=== PATIENT | female | born 1970 | race Caucasian/White ===

== ENCOUNTER 2021-05-19 14:13 | Inpatient (IN) | payer MEDICARE, OTHER ==
[~2021-05-19] VITALS: Ht 160 cm; Wt 75.0 kg
[~2021-05-19 14:13] MED LIST: AMOCLA875 PO; AMOX875 PO; AMPDEX15CR PO; ATOR20 PO; GUAI600ER PO; HYDCHL25 PO; K-Dur20 MEQ PO; LISI5 PO; Lisinopril2.5 MG PO; METF500 PO; NAPR500 PO; Norco 5-325 Ta1 EACH PO; OXYACE5T PO; POTCHL20ER PO; SERT100 PO; SERT50 PO; TAMS.4ER PO
[2021-05-19 15:11] LABS: BASOPHILS ABSOLUTE AUTO 0.04 K/mm3 (0.00-0.23); BASOPHILS PERCENT AUTO 0 % (0-2); EOSINOPHILS ABSOLUTE AUTO 0.02 K/mm3 (0.00-0.68); EOSINOPHILS PERCENT AUTO 0 % (0-6); Hematocrit 40.1 % (33.0-51.0); Hemoglobin 12.4 g/dL (11.5-16.0); IMMATURE GRAN ABSOLUTE AUTO 0.08 K/mm3 (0.00-0.10); IMMATURE GRAN PERCENT AUTO 1 % (0-1); LYMPHOCYTES ABSOLUTE AUTO 0.93 K/mm3 (0.84-5.20); LYMPHOCYTES PERCENT AUTO 9 % (21-46); MONOCYTES ABSOLUTE AUTO 0.65 K/mm3 (0.16-1.47); MONOCYTES PERCENT AUTO 6 % (4-13); Mean Corpuscular HGB 23.6 pg (26.0-34.0); Mean Corpuscular HGB Conc 30.9 g/dL (31.5-36.5); Mean Corpuscular Volume 76 fL (80-100); Mean Platelet Volume 10.1 fL (9.1-12.4); NEUTROPHILS ABSOLUTE AUTO 8.87 K/mm3 (1.96-9.15); NEUTROPHILS PERCENT AUTO 84 % (41-73); Platelet Count 342 K/mm3 (150-400); RDW Coefficient Variation 16.3 % (11.7-14.2); RDW Standard Deviation 44.9 fL (35.1-46.3); Red Blood Cell Count 5.25 M/mm3 (3.80-5.20); White Blood Cell Count 10.59 K/mm3 (4.00-11.30)
[2021-05-19 15:39] LABS: Alanine Aminotransfer (ALT/SGP 11 U/L (12-78); Albumin, Blood 2.6 g/dL (3.4-5.0); Albumin/Globulin Ratio 0.5 (0.8-1.8); Alk Phos 98 U/L (50-136); Anion Gap 7 mmol/L (6-16); Aspartate Aminotrans (AST/SGOT 9 U/L (12-37); Bilirubin, Total 0.5 mg/dL (0.1-1.0); Blood Urea Nitrogen 23 mg/dL (8-24); Bun/Creatinine Ratio 24.2 (12.0-20.0); CO2, Blood 26 mmol/L (21-32); Calcium, Blood 11.5 mg/dL (8.5-10.1); Chloride, Blood 92 mmol/L (98-108); Creatinine, Blood 0.95 mg/dL (0.40-1.00); Globulin, Blood 4.9 g/dL (2.2-4.0); Glomerular Filtration Rate >60 (60-); Glucose, Blood 578 mg/dL (70-99); Potassium, Blood 5.7 mmol/L (3.5-5.5); Sodium, Blood 125 mmol/L (136-145); Total Protein, Blood 7.5 g/dL (6.4-8.2)
[2021-05-19 16:37] LABS: Source, Urine Clean Catch
[2021-05-19 16:44] LABS: Appearance, Urine Hazy (Clear); Bilirubin, Urine Neg (Neg); Blood, Urine 2+ (Neg); Color, Urine Yellow (P-Yellow); Glucose Qualitative, Urine 4+ (Neg); Ketones, Urine Neg (Neg); Leukocyte Esterase, Urine 1+ (Neg); Nitrite, Urine Neg (Neg); Protein, Urine 4+ (Neg); Specific Gravity, Urine 1.015 (1.003-1.022); Urobilinogen, Urine NORM (Normal)
[2021-05-19 16:53] LABS: Bacteria Many /hpf; Squamous Epithelial Cells Mod /hpf (Few)
[2021-05-19 22:00] LABS: Source, Urine Catheter
[2021-05-19 22:03] LABS: Appearance, Urine Clear (Clear); Bilirubin, Urine Neg (Neg); Blood, Urine 2+ (Neg); Color, Urine Yellow (P-Yellow); Glucose Qualitative, Urine 4+ (Neg); Ketones, Urine Neg (Neg); Leukocyte Esterase, Urine 1+ (Neg); Nitrite, Urine Neg (Neg); Protein, Urine 3+ (Neg); Specific Gravity, Urine 1.015 (1.003-1.022); Urobilinogen, Urine NORM (Normal)
[2021-05-19 22:09] LABS: Amorphous Light (0-Heavy); Bacteria Many /hpf; Red Blood Cells, Urine 0-2 /hpf (0-2); Squamous Epithelial Cells Few /hpf (Few)
[2021-05-19 23:34] LABS: International Normalized Ratio 1.01; Prothrombin Time Results 10.9 Sec (9.7-11.5)
--- NOTE | 2021-05-20 00:50 | NUR ---
RECEIVED REPORT FROM LORENA JAMES RN. PT ARRIVED TO 303 VIA GURNEY. TRANSFERRED PT TO BED VIA SLIDER SHEET. ALERT. SLOW TO RESPOND TO QUESTIONS. ON 2.5L VIA NC. HEPARIN GTT INFUSING AT 18.3, 15 UNITS/KG/HR. WILL CONTINUE TO PROVIDE CARE T/O SHIFT. CALL LT IN REACH.
--- NOTE | 2021-05-20 01:57 | NUR ---
NOTIFIED HOSPITALIST OF CBG 378 AND THAT 5 UNITS OF REGULAR INSULIN WAS GIVEN AND THAT THE PT IS ON Q4 CBG CHECKS. NO NEW ORDERS GIVEN.
--- NOTE | 2021-05-20 02:11 | NUR ---
PT RESTING QUIETLY. CALL LT IN REACH. BED ALARM ON.
--- NOTE | 2021-05-20 04:54 | NUR ---
NOTIFIED HOSPITALIST OF CBG 377, 5 UNITS REG INSULIN GIVEN PER MEDIUM CORRECTION SCALE. NO NEW ORDERS RECEIVED.
--- NOTE | 2021-05-20 05:31 | NUR ---
SHIFT SUMMARY: ER ADMIT AT 0050. MOSTLY ALERT AND ORIENTED. SLOW TO RESPOND TO QUESTIONS. ON 2.5L VIA NC, DYSPNEA WITH EXERTION. USING BSC WITH SBA. IV'S X 2. ON HEPARIN GTT, SEE EMAR. Q4 CBG, ON MEDIUM CORRECTION SCALE. COVERED PT X 2 WITH 5 UNITS OF REG INSULIN FOR CBG'S OF [address] OF CBG RESULTS. NO ACUTE CHANGES. WILL CONTINUE TO PROVIDE CARE UNTIL SHIFT REPORT.
[2021-05-20 05:33] LABS: Bun/Creatinine Ratio 23.6 (12.0-20.0); Calcium, Blood 10.7 mg/dL (8.5-10.1); Creatinine, Blood 1.06 mg/dL (0.40-1.00); Potassium, Blood 5.1 mmol/L (3.5-5.5)
[2021-05-20 10:35] LABS: Cancer Antigen 125 262.9 U/mL (1.5-35.0); Carcinoembryonic Antigen 0.8 ng/mL (0.0-3.0)
--- NOTE | 2021-05-20 18:30 | NUR ---
SHIFT SUMMARY FREQUENTLY TEARFUL REGARDING CANCER DX. COMPLAINS OF FEELING COLD AT THIS TIME. TEMPERATURE WNL. SKIN WARM, DIAPHORETIC. PAIN/NAUSEA CONTROLLED WITH PRN'S. LUNG BX COMPLETE. HEAD CT IN AM, DUE TO CONTRAST ADMINISTRATION AT 2200, 05/19/2021.
--- NOTE | 2021-05-21 13:02 | NUR ---
Spiritual care visit conducted. Patient is lying in bed and resting. Patient is very tearful as she explains about her recent diagnosis, her family unit complications and the many struggles in life that she has endured. She also shares about her Holiness ashley and its importance in challenging times. I listen empathically, normalize her fears and concerns, reinforce helpful attitudes and practices and provide pastoral general counsel and prayer. Patient responds well and shows signs of an increase in peace and hope. I will continue to remain available to patient and family.
--- NOTE | 2021-05-21 13:28 | NUR ---
Met with pt today; she was lying in bed when I arrived. She welcomed the visit, but quickly after I sat down she began to cry, stating her stomach hurts "a lot". The nurse brought pain medication and assisted pt up to the chair for lunch. She was resistive at first, but then agreed to get up to the chair. She requires standby assist due to bilateral LE weakness. She tells me she hasn't been feeling well for about a month, and she thought it was kidney stones until she received the cancer diagnosis. So far, no middle or intermediate school principal decisions have been made. Pt tells me she lives in a small apartment, too small for either of her adult children to come to stay with her, and her daughter is getting ought of senior living soon. Pt does not bring up her diagnosis, and when I do, she changes the subject quickly. Her nurse states she was very open last evening, and that she did ask questions regarding the cancer. She is agreeable to me returning later today.
--- NOTE | 2021-05-21 17:50 | NUR ---
SHIFT SUMMARY UP TO CHAIR FOR ALL MEALS. FREQUENTLY TEARFUL/ANXIOUS. PAIN AND ANXIETY PRN'S GIVEN WITH REDUCTION OF SYMPTOMS. PALLIATIVE AND SPIRITUAL CARE CALLED BY THIS RN FOR ADDITIONAL SUPPORT. REFUSED TO AMBULATE IN HALLWAY. SON, DEEPIKA, VISITED THIS EVENING AND WAS UPDATED BY THIS RN.
[2021-05-22 05:07] LABS: Hematocrit 38.8 % (33.0-51.0); Mean Corpuscular HGB 23.8 pg (26.0-34.0); Mean Corpuscular HGB Conc 30.9 g/dL (31.5-36.5); Mean Corpuscular Volume 77 fL (80-100); Mean Platelet Volume 10.7 fL (9.1-12.4); Platelet Count 403 K/mm3 (150-400); RDW Standard Deviation 46.9 fL (35.1-46.3); Red Blood Cell Count 5.04 M/mm3 (3.80-5.20); White Blood Cell Count 12.07 K/mm3 (4.00-11.30)
--- NOTE | 2021-05-22 05:39 | NUR ---
SUMMARY PT C/O CONSTIPATION T/O SHIFT. PT HAD NOTED LOOSE BROWN STOOL DURING SHIFT. PT ALSO C/O ABD PAIN W/ NAUSEA. PT TX PER EMAR W/ RELIEF. PT CURRENTLY AWAKE IN NO DISTRESS. CALL LIGHT IN REACH.
[2021-05-22 05:59] LABS: Calcium, Blood 11.3 mg/dL (8.5-10.1); Creatinine, Blood 2.41 mg/dL (0.40-1.00); Potassium, Blood 5.4 mmol/L (3.5-5.5); Thyroid Stimulating Hormone 5.26 uIU/mL (0.360-4.800)
--- NOTE | 2021-05-22 12:10 | NUR ---
Met with pt this am, she is tearful and tells me that her roommate has . She states her son went to the apartment and found him there, and called 911. After today's assessment, it appears pt has low level of insight and poor understanding of disease process. During this assessment, I learned that pt has a payee ([employer]) to pay her bills, and she is on disability. Her son is able to tell me it's for "her emotional stuff" but unable to clarify beyond that. I relayed these concerns to Manager Of Warehouse, and placed call to "[employer]" with pt's permission to speak to them regarding her situation. Spoke to Cristy who explained that pt is not only unable to make financial decisions or pay bills, but that her roommate was also the one who held the apartment lease, likely making pt homeless. Pt states she has a brother Ramesh, and she gave me permission to call him. I have left a message for him at [phone]. At this point, pt may benefit from assistance with decision making, as well as assistance with placement.
--- NOTE | 2021-05-22 16:55 | NUR ---
SHIFT SUMMARY PT IS AO TO SELF AND FAMILY WITH FLAT AFFECT. PT DENIES N/V, SOB. PT TITRATED TO 1 L O2 THIS SHIFT. PT MEDICATED FOR PAIN X1 PER EMAR. PT IS ONE ASSIST TO BCC AND REFUSES PT/OT. PT APPETITE IS POOR. NO PROCEDURES DONE THIS SHIFT. PT MAY BE AWAITING PLACEMENT DUE TO ROOMATE PASSING AWAY THIS AM, LEAVING PT ESSENTIALLY HOMELESS. PT'S SON IN TO VISIT T/O SHIFT. PT HAD MULTIPLE BM'S THIS SHIFT. PT IS IN BED, CALL LIGHT IN REACH, BED IN LOW POSITION.
--- NOTE | 2021-05-23 06:17 | NUR ---
SHIFT SUMMARY PT IS A 50 Y/O FEMALE, ADMITTED FOR PE. SHE IS A&O X 3, CHILDLIKE DEMEANOR, 1PA TO THE BATHROOM. PT WAS MEDICATED FOR NAUSEA AND EMESIS WITH PRN ZOFRAN. NO C/O PAIN OR SOB. PT IS SATTING > 90% ON RA. VITAL SIGNS STABLE. NO ACUTE CHANGES IN PT CONDITION NOTED DURING THE NIGHT. WILL CONTINUE TO MONITOR AND TREAT PER EMAR UNTIL HAND OFF TO DAY SHIFT RN.
--- NOTE | 2021-05-23 18:46 | NUR ---
SHIFT SUMMARY PT IS AOX2-3 AND SLOW TO RESPOND. PT MEDICATED FOR PAIN AND HEARTBURN X1 THIS SHIFT PER EMAR. PT DENIES N/V, SOB. PT IS ONE ASSIST TO BCC. PT APPETITE IS MODERATE. PT COGNITIVE STATUS EVALUATED BY ST THIS SHIFT. PT'S SON IN TO VISIT TODAY. PLAN IS FOR PLACEMENT DUE TO SOCIAL ISSUES. PT IS IN BED, CALL LIGHT IN REACH, LOW POSITION.
--- NOTE | 2021-05-23 19:20 | NUR ---
met with pt and her son. pt unable to track conversation and very distraught. pt son states he will be ok for suppport. pt brother come to hospital they were not going to let him in asked that he come in may be potential deicion maker. pt brother marcelino and left. will update care managers on tuesday and oncology pt will need place to live and need to see what oncology plan is pt kps ascore is 40%. pt risk of failure to thrive and readmission. may be best cared for in [facility] facility.
--- NOTE | 2021-05-24 06:29 | NUR ---
SHIFT SUMMARY PT IS A 50 Y/O FEMALE, ADMITTED FOR PE. SHE IS A&O X 2-3, CHILDLIKE MENTALITY, [facility] [facility] NO C/O ACUTE PAIN, NAUSEA OR SOB. PT SLEPT WELL THROUGH THE NIGHT. VITAL SIGNS STABLE. NO ACUTE CHANGES IN PT CONDITION NOTED DURING THE NIGHT. WILL CONTINUE TO MONITOR AND TREAT PER EMAR UNTIL HAND OFF TO DAY SHIFT RN.
[2021-05-24 08:05] LABS: Hematocrit 35.2 % (33.0-51.0)
[2021-05-24 08:43] LABS: Calcium, Blood 10.7 mg/dL (8.5-10.1); Creatinine, Blood 4.5 mg/dL (0.40-1.00); Potassium, Blood 6.3 mmol/L (3.5-5.5)
[2021-05-24 13:01] LABS: International Normalized Ratio 1.11; Prothrombin Time Results 11.9 Sec (9.7-11.5)
--- NOTE | 2021-05-24 13:10 | NUR ---
RECEIVED CRITICAL LAB OF POTASSIUM; CALLED DR BROCK AND RECEIVED AN ORDER TO CALL DR HAYES INSTEAD; SUSI CANSECO WILL CALL DR HAYES FOR THIS RESULT
--- NOTE | 2021-05-24 19:23 | NUR ---
SHIFT SUMMARY PT IS AOX3 WITH FORGETFULNESS. PT DENIES PAIN, N/V, SOB. PT IS ONE ASSIST TO BCC WITH INCREASING WEAKNESS. PT IS ON TELE RUNNING SINUS TACH BBB @ 110. PT PLACED ON 2 L 02 THIS TELMA FOR SATS 86-88%. PT K+ REMAINS CH THIS SHIFT @ 6.4, INTERVENTIONS PER EMAR AND RECHECK DUE TONIGHT. APPETITE IS POOR AND PT IS NOW REQUIRING MEAL ASSISTANCE FOR POOR MOTOR SKILLS. PT HAD RENAL US THIS SHIFT. PT'S ON IN TO VISIT. PT PLACED ON HEPARIN DRIP TO REPLACE XARELTO FOR ANTICOAGULATION DUE TO RENAL FAILURE. PT IS IN BED, CALL LIGHT IN REACH, BED IN LOW POSITION.
[2021-05-25 04:38] LABS: Hematocrit 32.6 % (33.0-51.0); Hemoglobin 10.2 g/dL (11.5-16.0)
[2021-05-25 05:07] LABS: Alanine Aminotransfer (ALT/SGP 8 U/L (12-78); Albumin, Blood 1.7 g/dL (3.4-5.0); Albumin/Globulin Ratio 0.4 (0.8-1.8); Alk Phos 91 U/L (50-136); Anion Gap 9 mmol/L (6-16); Aspartate Aminotrans (AST/SGOT 9 U/L (12-37); Bilirubin, Direct <0.1 mg/dL (0.0-0.3); Bilirubin, Indirect Unable to Calculate mg/dL (0.1-0.7); Bilirubin, Total 0.2 mg/dL (0.1-1.0); Blood Urea Nitrogen 65 mg/dL (8-24); Bun/Creatinine Ratio 14.9 (12.0-20.0); CO2, Blood 24 mmol/L (21-32); CPK Creatine Kinase 18 U/L (26-193); Calcium, Blood 9.7 mg/dL (8.5-10.1); Chloride, Blood 94 mmol/L (98-108); Creatinine, Blood 4.37 mg/dL (0.40-1.00); Globulin, Blood 4.1 g/dL (2.2-4.0); Glomerular Filtration Rate 11 (60-); Glucose, Blood 131 mg/dL (70-99); Magnesium, Blood 2.3 mg/dL (1.6-2.4); Phosphorus, Blood 7.6 mg/dL (2.5-4.9); Potassium, Blood 5.6 mmol/L (3.5-5.5); Sodium, Blood 127 mmol/L (136-145); Total Protein, Blood 5.8 g/dL (6.4-8.2); Uric Acid, Blood 10.1 mg/dL (2.6-6.0)
--- NOTE | 2021-05-25 06:15 | NUR ---
SHIFT SUMMARY PT IS A 50 Y/O FEMALE, ADMITTED FOR PE AND RECENT ACUTE KIDNEY FAILURE WITH REENT DX OF KIDNEY CA. SHE IS A&O X 3, WITH A CHILDLIKE MENTATION. 1PA TO THE BSC. PT HAD MINIMAL URINE OUTPUT DURING THE NIGHT, RECEIVING NS @ 150 ML/HR. RECEIVING HEPARIN CURRENTLY @ 19 U/KG/HR. BP THIS AM WAS LOW AT 96/59, HR TACHY IN THE 100-110S. PT WAS PLACE ON 2L OF O2 VIA NC FOR SATS OF 88-89% ON RA, CURRENTLY SATTING > 90%. VITAL SIGNS OTHERWISE STABLE. K+ LAST NIGHT WAS 5.9. DR HAYES NOTIFIED, AND A OT DOSE OF LOKELMA GIVEN. NO OTHER ACUTE CHANGES IN PT CONDITION NOTED DURING THE NIGHT. WILL CONTINUE TO MONITOR AND TREAT PER EMAR UNTIL HAND OFF TO DAY SHIFT RN.
[2021-05-25 12:01] LABS: Mean Platelet Volume 9.8 fL (9.1-12.4); Platelet Count 477 K/mm3 (150-400)
[2021-05-25 16:03] LABS: Thyroid Stimulating Hormone 4.44 uIU/mL (0.360-4.800); Uric Acid, Blood 9.9 mg/dL (2.6-6.0)
[2021-05-25 16:06] LABS: Cortisol, AM 23.8 ug/dL (6.7-22.6)
--- NOTE | 2021-05-25 18:38 | NUR ---
PATIENT IS ALERT AND ORIENTED. SHE IS CHILDLIKE. ON 2L O2 VIA NC.VOIDED ONCE THIS SHIFT. A 24 HR URINE WAS STARTED AT 1000. HER SON VISITED TODAY. PLAN TO [facility] TRANSFER FOR UROLOGY. PARTICIPATED WITH PT TODAY. 1PA WITH FWW AND GAITBELT. WILL CONTINUE TO MONITOR
[2021-05-26 04:22] LABS: Hematocrit 30.6 % (33.0-51.0); Hemoglobin 9.7 g/dL (11.5-16.0)
[2021-05-26 04:40] LABS: Albumin, Blood 1.6 g/dL (3.4-5.0); Anion Gap 9 mmol/L (6-16); Blood Urea Nitrogen 67 mg/dL (8-24); Bun/Creatinine Ratio 16.6 (12.0-20.0); CO2, Blood 21 mmol/L (21-32); Calcium, Blood 8.8 mg/dL (8.5-10.1); Chloride, Blood 96 mmol/L (98-108); Creatinine, Blood 4.03 mg/dL (0.40-1.00); Glomerular Filtration Rate 12 (60-); Glucose, Blood 145 mg/dL (70-99); Magnesium, Blood 2.3 mg/dL (1.6-2.4); Phosphorus, Blood 7.2 mg/dL (2.5-4.9); Potassium, Blood 5.1 mmol/L (3.5-5.5); Sodium, Blood 126 mmol/L (136-145)
--- NOTE | 2021-05-26 05:05 | NUR ---
50 year old Female with dx of PE continues on heparin GTT managed by pharmacy. No bolus doses given but titrated infusion up twice. PT on oxygen 2 l with sats over 90%. PT has developmental delay but able to communicate. On 24 hour urine collection with IV fluids running at 150 ml hr PT has dark luz urine. PT on abx for uti. Son calls & asks to be notified when PT cobra transferred to care of urology. DC planning to [facility] or [facility] pending acceptance of PT with new DX of lt lt renal cancer.
--- NOTE | 2021-05-26 10:58 | NUR ---
Met with pt this morning, she was tearful and states she is feeling "so lonely". The BACK WEDGER said pt wanted to take a shower but felt too weak, so I offered pt a bed bath along with our visit. She agreed to it. During the bath, she talked a lot about her mother. She began to cry when she stated her mom had unexpectedly. She also tells me her stepdad was not a nice person, and he sold her mothers home right away after her mom passed, and that she has been "mostly alone" since that time. She has mentioned having brothers in the past, and I have spoken to one brother on he phone. Her mood brightened considerably with the visit, and afterward, she was agreeable to get up into the chair to color pictures. Plan to stop in again this afternoon.
[2021-05-26 11:17] LABS: Protein, Urine Quantitative 213.7 mg/dL (0.0-11.9)
--- NOTE | 2021-05-26 13:25 | NUR ---
Spiritual care visit conducted. Patient is very talkative today and shares about her ashley and her family and we explore areas of her spiritual distress. Patient enjoys reminiscing about the good parts of her childhood. Patient has very clear and energetic moments and then times that she is slow and her speech is a little slurred. She also had a couple of very emotional times during our visit when talking about past mistakes, when talking about the seriousness of her diagnosis and when becoming overwhelmed by all the medical terms and treatments. I reinforce helpful attitudes and practices, hear confession and provide therapeutic listening, pastoral pediatric genetic counselor and prayer. Patient responds well and shows signs of catharsis and increased peace. I will continue to remain available to patient and family.
--- NOTE | 2021-05-26 15:07 | NUR ---
REPORT GIVEN TO RM 0 NURSE, DMITRIY GOLDMAN AT [facility] IN [place].
[2021-05-27 16:11] LABS: A/G RATIO 0.7 (0.7-1.7); ALPHA-1-GLOBULIN 0.6 g/dL (0.0-0.4); ALPHA-2-GLOBULIN 1.3 g/dL (0.4-1.0); BETA GLOBULIN 0.8 g/dL (0.7-1.3); GAMMA GLOBULIN 0.7 g/dL (0.4-1.8); GLOBULIN, TOTAL 3.3 g/dL (2.2-3.9); IMMUNOGLOBULIN A, QN, SERUM 224 mg/dL (87-352); IMMUNOGLOBULIN G, QN, SERUM 608 mg/dL (586-1602); IMMUNOGLOBULIN M, QN, SERUM 80 mg/dL (26-217); M-SPIKE Not Observed g/dL (Not Observed); PROTEIN, TOTAL, SERUM 5.3 g/dL (6.0-8.5)
[2021-05-28 09:11] LABS: ANTIGLOMERULAR BM AB 3 units (0-20)
[2021-05-28 15:11] LABS: ANA DIRECT Negative (Negative); ANTIMYELOPEROXIDASE (MPO) ABS <9.0 U/mL (0.0-9.0); ANTIPROTEINASE 3 (PR-3) ABS <3.5 U/mL (0.0-3.5); ATYPICAL PANCA <1:20 titer (Neg:<1:20); CYTOPLASMIC (C-ANCA) <1:20 titer (Neg:<1:20); PERINUCLEAR (P-ANCA) <1:20 titer (Neg:<1:20)
--- NOTE | 2021-05-28 16:46 | NUR ---
Placed call to Tawnya Cortes and spoke to SUSI Lacey regarding this pt. She reports pt had a R ureter stent placed, and is returning to [facility] today, Room 309. The nurse Deepthi reports: Pt is alert but confused easily. The patient has been reporting hallucinations of people in her room throughout her hospital stay there. Deepthi also reports the patient is unable to understand the use of call light or other basic tasks. She is currently a 1 person walker assist whose pain is currently well controlled. Report passed on to Abhisehk.
[2021-05-29 13:08] LABS: M-SPIKE, % Not Observed % (Not Observed); PROTEIN,TOTAL,URINE 125.8 mg/dL (Not Estab.)
== END 2021-05-26 16:19 | disposition short-term general hospital (02) | DRG 180 ==
LOC: ER 14:13 → MEDS 23:28
PROVIDERS: Internal Medicine; Internal Medicine Hematology & Oncology; Internal Medicine Nephrology; Physician Assistant; ADMIT Internal Medicine
PROC: 0BBN3ZX Excision of Right Pleura, Percutaneous Approach, Diagnostic (ICD-10-PCS; principal; 2021-05-20)
DX: C78.00 Secondary malignant neoplasm of unspecified lung (principal); I26.99 Other pulmonary embolism without acute cor pulmonale; C64.1 Malignant neoplasm of right kidney, except renal pelvis; C78.6 Secondary malignant neoplasm of retroperitoneum and peritoneum; R18.0 Malignant ascites; N17.9 Acute kidney failure, unspecified; E87.1 Hypo-osmolality and hyponatremia; N13.6 Pyonephrosis; K64.4 Residual hemorrhoidal skin tags; E11.65 Type 2 diabetes mellitus with hyperglycemia; E87.5 Hyperkalemia; G47.00 Insomnia, unspecified; E86.9 Volume depletion, unspecified; E11.22 Type 2 diabetes mellitus with diabetic chronic kidney disease; E83.39 Other disorders of phosphorus metabolism; E83.52 Hypercalcemia; D63.0 Anemia in neoplastic disease; E88.09 Other disorders of plasma-protein metabolism, not elsewhere classified; N18.9 Chronic kidney disease, unspecified; F41.9 Anxiety disorder, unspecified; I12.9 Hypertensive chronic kidney disease with stage 1 through stage 4 chronic kidney disease, or unspecified chronic kidney disease; K59.00 Constipation, unspecified; K64.8 Other hemorrhoids; Z87.442 Personal history of urinary calculi; Z90.711 Acquired absence of uterus with remaining cervical stump; Z87.891 Personal history of nicotine dependence; Z79.899 Other long term (current) drug therapy; Z79.84 Long term (current) use of oral hypoglycemic drugs
CPT/HCPCS: 32408; 36415; 70470; 71260; 74150; 74176; 76770; 77012; 80048; 80053; 80069; 81001; 81050; 82248; 82378; 82533; 82550; 82784; 82947; 83036; 83516; 83520; 83690; 83735; 83930; 83970; 84100; 84132; 84156; 84165; 84166; 84436; 84443; 84550; 85014; 85018; 85025; 85027; 85049; 85610; 85730; 86038; 86256; 86304; 86334; 86335; 87086; 88305; 88341; 88342; 93306; 93970; 96125-GN; 96361; 96374; 96375; 97110; 97116; 97162; 97530; 99285-25; A9270; J0610; J0696; J1644; J1815; J2270; J2405; J7030; Q9967

== ENCOUNTER 2021-05-28 13:52 | Inpatient (IN) | payer MEDICARE, OTHER ==
[~2021-05-28] VITALS: Ht 160 cm; Wt 91.3 kg
--- NOTE | 2021-05-28 18:43 | NUR ---
SUMMARY PT ARRIVED FROM [facility], PT DIRECT ADMIT, DR MAE NOTIFIED UPON PT'S ARRIVAL, PT ABLE TO STAND AND TRANSFER SELF FROM THE GURNEY TO THE BED, THEN PT ABLE TO AMBULATE WITH THE WALKER TO THE BEDSIDE COMMODE, PT HAS A [address] TO THE L AC, PT DENIES ANY PAIN, ABLE TO VOID PINK TINGED URINE WITH SMALL CLOTS, WILL CONTINUE TO MONITOR
[2021-05-28 19:34] LABS: International Normalized Ratio 1.09; Prothrombin Time Results 11.7 Sec (9.7-11.5)
--- NOTE | 2021-05-28 22:58 | NUR ---
IV HEPARIN DRIP INITIATED - SEE MAR FOR DOSAGE/PHARM NOTES. ASSISTED TO BEDSIDE COMMODE A FEW TIMES. PT SHOWS DIFFICULTY WITH MOVEMENT - SEVER ASCITES. CONTINUES TO HAVE PINK TINGED URINE. CALL LIGHT IN REACH.
[2021-05-28 23:54] LABS: Albumin, Blood 1.6 g/dL (3.4-5.0); Anion Gap 14 mmol/L (6-16); Blood Urea Nitrogen 76 mg/dL (8-24); Bun/Creatinine Ratio 21.1 (12.0-20.0); CO2, Blood 18 mmol/L (21-32); Calcium, Blood 8.4 mg/dL (8.5-10.1); Chloride, Blood 95 mmol/L (98-108); Creatinine, Blood 3.61 mg/dL (0.40-1.00); Glomerular Filtration Rate 13 (60-); Glucose, Blood 148 mg/dL (70-99); Magnesium, Blood 2.1 mg/dL (1.6-2.4); Phosphorus, Blood 7.9 mg/dL (2.5-4.9); Potassium, Blood 5.3 mmol/L (3.5-5.5); Sodium, Blood 127 mmol/L (136-145)
--- NOTE | 2021-05-29 01:24 | NUR ---
ORDERS FOR BLADDER SCAN TO CALL MD IF OVER 200 CC. BLADDER SCANNED, 178 RESULT. IV BUMEX GIVEN. IV HEPARIN DRIP CONTINUES. CALL LIGHT IN REACH
[2021-05-29 05:10] LABS: Hematocrit 29.8 % (33.0-51.0); Hemoglobin 9.3 g/dL (11.5-16.0); Mean Corpuscular HGB 23.5 pg (26.0-34.0); Mean Corpuscular HGB Conc 31.2 g/dL (31.5-36.5); Mean Corpuscular Volume 75 fL (80-100); Mean Platelet Volume 8.9 fL (9.1-12.4); Platelet Count 466 K/mm3 (150-400); RDW Standard Deviation 47.3 fL (35.1-46.3); Red Blood Cell Count 3.95 M/mm3 (3.80-5.20); White Blood Cell Count 10.57 K/mm3 (4.00-11.30)
--- NOTE | 2021-05-29 05:29 | NUR ---
EXECUTIVE TEAM LEADER SUMMARY AWKAE AT INTERVALS, HEPARIN DRIP CONTINUES. BLADDER SCANNED, NOT MUCH IN BLADDER. HAS BEEN ASSISTED TO BEDSIDE COMMODE A FEW TIMES. RESTING QUIETLY WITH CALL LIGHT IN REACH
[2021-05-29 05:32] LABS: Albumin, Blood 1.6 g/dL (3.4-5.0); Anion Gap 11 mmol/L (6-16); Blood Urea Nitrogen 75 mg/dL (8-24); Bun/Creatinine Ratio 21.2 (12.0-20.0); CO2, Blood 18 mmol/L (21-32); Calcium, Blood 8.3 mg/dL (8.5-10.1); Chloride, Blood 96 mmol/L (98-108); Creatinine, Blood 3.53 mg/dL (0.40-1.00); Glomerular Filtration Rate 14 (60-); Glucose, Blood 133 mg/dL (70-99); Magnesium, Blood 2.2 mg/dL (1.6-2.4); Phosphorus, Blood 7.6 mg/dL (2.5-4.9); Potassium, Blood 5.2 mmol/L (3.5-5.5); Sodium, Blood 125 mmol/L (136-145)
--- NOTE | 2021-05-29 17:09 | NUR ---
SUMMARY PT SITTING UP IN BED VISITING WITH HER SON, PT HAS BEEN PLEASANT AND COOPERATIVE WITH CARE T/O THE DAY, FORGETFUL AT TIMES AND DOES NOT CONSISTENTLY USE THE CALL LIGHT, BED ALARM ON FOR SAFETY, PT MED PER EMAR FOR PAIN, PT UP WITH MIN ASSIST, VSS, WILL CONT TO MONITOR
--- NOTE | 2021-05-30 07:05 | NUR ---
Pt is calm a&ox3 resonds slow verbally oob to bedside comode co ascities discomfort and difficultly breathing with postional changes. had one espisode of nightmares afraid and easily redirectable sat at bedside. hob elevated and call light within reach currently on bedside comode with co constipation
[2021-05-30 08:16] LABS: Albumin, Blood 1.9 g/dL (3.4-5.0); Anion Gap 14 mmol/L (6-16); Blood Urea Nitrogen 76 mg/dL (8-24); Bun/Creatinine Ratio 23.7 (12.0-20.0); CO2, Blood 17 mmol/L (21-32); Calcium, Blood 8.6 mg/dL (8.5-10.1); Chloride, Blood 94 mmol/L (98-108); Creatinine, Blood 3.21 mg/dL (0.40-1.00); Glomerular Filtration Rate 15 (60-); Glucose, Blood 162 mg/dL (70-99); Magnesium, Blood 2.1 mg/dL (1.6-2.4); Phosphorus, Blood 6.8 mg/dL (2.5-4.9); Sodium, Blood 125 mmol/L (136-145)
--- NOTE | 2021-05-30 18:28 | NUR ---
PATIENT IS A/O X3 CALLS APPROPRIATELY, SLOW TO RESPOND AT TIMES. PATIENT HAS ASCITES AND EDEMA IN LOWER EXTREMITIES. PATIENT'S PAIN HAS BEEN MONITORED THROUGHOUT THE DAY WITH TYLENOL AND FENTANYOL. PATIENT HAS A CONSULT WITH ONCOLOGY TOMORROW TO DETERMINE A PLAN OF CARE MOVING FORWARD. PATIENT IS UP IN CHAIR, WITH CALL LIGHT AND POSSESSIONS WITHIN REACH.
[2021-05-31 05:08] LABS: Hematocrit 29.9 % (33.0-51.0); Hemoglobin 9.4 g/dL (11.5-16.0)
[2021-05-31 05:37] LABS: Anion Gap 11 mmol/L (6-16); Blood Urea Nitrogen 74 mg/dL (8-24); Bun/Creatinine Ratio 25.9 (12.0-20.0); CO2, Blood 19 mmol/L (21-32); Calcium, Blood 8.6 mg/dL (8.5-10.1); Chloride, Blood 97 mmol/L (98-108); Creatinine, Blood 2.86 mg/dL (0.40-1.00); Glomerular Filtration Rate 17 (60-); Glucose, Blood 139 mg/dL (70-99); Magnesium, Blood 2.1 mg/dL (1.6-2.4); Phosphorus, Blood 6.1 mg/dL (2.5-4.9); Potassium, Blood 4.9 mmol/L (3.5-5.5); Sodium, Blood 127 mmol/L (136-145)
--- NOTE | 2021-05-31 05:40 | NUR ---
shift summary: pt was calm cooperative w family dog present.Pt a&ox2 to place and self. slow cognitive delay w/ speech allow time for verbal reply. pt was able to transfer to bedside commode w/ standby assist but still requires help with bree care.pt is very swollen to the abdomin and torso ascities c/o positsonal difficulty breathing states she feels abdomin pushing into sternum. LE extremities trce edema as well. pt uses call light approperiately for assistance, pt is on 2lnc lungs are coarse diminished throughout. pt reports she isd ready to go home.
--- NOTE | 2021-05-31 06:23 | NUR ---
pt is sitting at bedside c/o difficulty breathing when laying flat.pt received education on positisonal change with ascities to ease respiratory effort. pt declined bladderscan after void c/o constipation feeling.
--- NOTE | 2021-05-31 17:33 | NUR ---
PT HAS BEEN COOPERATIVE WITH CARE THROUGHOUT THE SHIFT. THE PLAN FOR THE PATIENT IS TO HOPEFULLY HAVE A CONSULT WITH AN ONCOLOGIST IN THE AM, WELL A VISIT FROM A LEGAL ADVISER REGARDING THEIR CARE ONCE THEY ARE DISCHARGED. FAMILY WAS IN TODAY TO VISIT THE PT. PT STATED THEIR EAR WAS CAUSING SOME DISCOMFORT. I GAVE THEM A WARM WASH CLOTH, WHICH SEEMED TO HELP. THE PATIENT DENIED ANY PAIN THROUGOUT THE SHIFT. THE PT IS IN A RECLINER SITTING AT THE BEDSIDE WITH LEGS ELEVATED. VITAL SIGNS STABLE, CALL LIGHT WITHIN REACH.
[2021-06-01 04:58] LABS: Hematocrit 29.4 % (33.0-51.0); Hemoglobin 9.3 g/dL (11.5-16.0)
--- NOTE | 2021-06-01 05:03 | NUR ---
SHIFT SUMMARY: PT A&0X3 COGNITIVE DELAY SLOW SPEECH RESPONSE. OOB W/BRP 1P STANDBY MINIMAL ASSIST TO BEDSIDE COMODE. PT REPORTS RESPIRATORY DIFFICULTY W/POSITSON ENCOURAGED TO SIT UP ON 2LNC O2, ASCIITES AND TRACE EDEMA TO LE. SLEPT APPROX. 5.5HRS THIS SHIFT. PT RAISED CONCERNS ABOUT LIVING SITUATIO AND HOUSING W/ FAMILY STATES "SON GOT ANGRY AND LEFT" PT VISIBLY DISTRAUGHT. LATER PT REPORTED CONSTIPATION PROVIDER WAS CONTACTED FOR PRN DUCOLAX TO EASE BOWEL CARE, PT AGREEABLE TO DRINKING PRUNE JUICE IN MORNING WOULD SOMETHING STRONGER SHE HEMMROIDS. HOB ELEVATED CALL LIGHT WITHIN REACH BEDRAILS UP FOR SAFETY.
[2021-06-01 05:16] LABS: Albumin, Blood 2.2 g/dL (3.4-5.0); Anion Gap 10 mmol/L (6-16); Blood Urea Nitrogen 74 mg/dL (8-24); Bun/Creatinine Ratio 30.8 (12.0-20.0); CO2, Blood 21 mmol/L (21-32); Calcium, Blood 8.4 mg/dL (8.5-10.1); Chloride, Blood 96 mmol/L (98-108); Glomerular Filtration Rate 21 (60-); Glucose, Blood 132 mg/dL (70-99); Magnesium, Blood 1.9 mg/dL (1.6-2.4); Phosphorus, Blood 5.3 mg/dL (2.5-4.9); Potassium, Blood 4.8 mmol/L (3.5-5.5); Sodium, Blood 127 mmol/L (136-145)
--- NOTE | 2021-06-01 17:07 | NUR ---
SUMMARY PT RESTING IN BED, WAKES EASILY, HAS BEEN PLEASANT AND COOPERATIVE WITH CARE, WORKED WITH PT/OT TODAY, RECOMMENDATION IS SNF, CARE MANAGEMENT WORKING ON DISCHARGE PLAN, PT MED PER EMAR FOR PAIN, NO OTHER COMPLAINTS, VSS, WILL CONTINUE TO MONITOR
--- NOTE | 2021-06-02 05:38 | NUR ---
SHIFT SUMMARY: AOX2 WITH PERIODS OF CONFUSION ON TIME AND PLACE. ABLE TO GET UP TO BSC WITH LITTLE ASSISTANCE. REPORTS PAIN IN ABDOMIN DULL. SOB WITH LITTLE EXERTION. LS DIMINISHED. NO COUGH OR CONGESTION. ABDOMIN ROUND, DISTENDED, BT HYPOACTIVE. VOIDING OK, FREQUENTLY. TOOK MEDICATION FOR PAIN X1. DENIED ANY NEEDS THIS SHIFT. SLEPT WELL. VS WNL. AFEBRILE. CALL LIGHT IS IN REACH AND USED APPROPRIATLY.
[2021-06-02 07:31] LABS: Albumin, Blood 2.4 g/dL (3.4-5.0); Anion Gap 11 mmol/L (6-16); Blood Urea Nitrogen 72 mg/dL (8-24); Bun/Creatinine Ratio 37.9 (12.0-20.0); CO2, Blood 20 mmol/L (21-32); Calcium, Blood 8.5 mg/dL (8.5-10.1); Chloride, Blood 97 mmol/L (98-108); Glomerular Filtration Rate 28 (60-); Glucose, Blood 160 mg/dL (70-99); Magnesium, Blood 1.7 mg/dL (1.6-2.4); Phosphorus, Blood 4.9 mg/dL (2.5-4.9); Potassium, Blood 4.7 mmol/L (3.5-5.5); Sodium, Blood 128 mmol/L (136-145)
[2021-06-02] MEDS ORDERED: ELIQUIS5 M2 PO (16:24)
[2021-06-02] MEDS ORDERED: INSULANPEN SC (16:25)
[2021-06-02] MEDS ORDERED: BUME2 PO (16:25)
[2021-06-02] MEDS ORDERED: HUMALOG JU100 UNIT/2 SC (16:27)
[2021-06-02] MEDS ORDERED: SODBIC650 PO (16:27)
[2021-06-02] MEDS ORDERED: OXAYDO5 M1 PO (16:28)
[2021-06-02 17:24] LABS: SARS-Cov-2 (COVID-19) PCR, MMC NEGATIVE (NEGATIVE)
--- NOTE | 2021-06-02 18:04 | NUR ---
SUMMARY/DISCHARGE PT SITTING UP IN THE CHAIR AT THE BEDSIDE, PT HAS BEEN PLEASANT AND COOPERATIVE T/O THE DAY, MED PER EMAR FOR PAIN NEEDED, PT HAS BEEN UP WORKING WITH PT/OT, MARY WELL, FAMILY HAS CALLED TO CHECK ON THE PT, PLAN TO DC TO [facility] TODAY, WAITING FOR TRANSPORTATION, WILL CONT TO MONITOR
--- NOTE | 2021-06-02 18:29 | NUR ---
ATTEMPT TO CALL REPORT, TRANSPORT HERE NOW
== END 2021-06-02 18:36 | DRG 683 ==
LOC: MEDS 17:58
PROVIDERS: Internal Medicine; Internal Medicine Nephrology; ADMIT Internal Medicine
DX: N17.9 Acute kidney failure, unspecified (principal); C78.6 Secondary malignant neoplasm of retroperitoneum and peritoneum; C64.9 Malignant neoplasm of unspecified kidney, except renal pelvis; E87.1 Hypo-osmolality and hyponatremia; E87.2 Acidosis; N18.9 Chronic kidney disease, unspecified; E87.5 Hyperkalemia; E11.22 Type 2 diabetes mellitus with diabetic chronic kidney disease; Z87.442 Personal history of urinary calculi; I12.9 Hypertensive chronic kidney disease with stage 1 through stage 4 chronic kidney disease, or unspecified chronic kidney disease; K59.00 Constipation, unspecified; Z97.11 Presence of artificial right arm (complete) (partial); Z79.899 Other long term (current) drug therapy; E03.9 Hypothyroidism, unspecified; Z79.4 Long term (current) use of insulin; D64.9 Anemia, unspecified
CPT/HCPCS: 36415; 80069; 82947; 83735; 85014; 85018; 85027; 85610; 85730; 97110; 97116; 97162; 97165; 97530; 97535; A9270; J0881; J1644; J2405; J3010; P9041; U0004

== ENCOUNTER 2021-06-15 14:04 | Inpatient (IN) | payer MEDICARE, OTHER ==
[~2021-06-15] VITALS: Ht 160 cm; Wt 90.4 kg
[~2021-06-15 14:04] MED LIST changes: +BUME2 PO; +ELIQUIS5 M2 PO; +HUMALOG JU100 UNIT/2 SC; +INSULANPEN SC; +OXAYDO5 M1 PO; +SODBIC650 PO
[2021-06-15 14:48] LABS: BASOPHILS ABSOLUTE AUTO 0.02 K/mm3 (0.00-0.23); BASOPHILS PERCENT AUTO 0 % (0-2); EOSINOPHILS ABSOLUTE AUTO 0.03 K/mm3 (0.00-0.68); EOSINOPHILS PERCENT AUTO 0 % (0-6); Hematocrit 30.5 % (33.0-51.0); Hemoglobin 9.3 g/dL (11.5-16.0); IMMATURE GRAN ABSOLUTE AUTO 0.12 K/mm3 (0.00-0.10); IMMATURE GRAN PERCENT AUTO 1 % (0-1); LYMPHOCYTES ABSOLUTE AUTO 0.66 K/mm3 (0.84-5.20); LYMPHOCYTES PERCENT AUTO 6 % (21-46); MONOCYTES ABSOLUTE AUTO 0.62 K/mm3 (0.16-1.47); MONOCYTES PERCENT AUTO 6 % (4-13); Mean Corpuscular HGB 23.5 pg (26.0-34.0); Mean Corpuscular HGB Conc 30.5 g/dL (31.5-36.5); Mean Corpuscular Volume 77 fL (80-100); Mean Platelet Volume 8.5 fL (9.1-12.4); NEUTROPHILS ABSOLUTE AUTO 9.32 K/mm3 (1.96-9.15); NEUTROPHILS PERCENT AUTO 87 % (41-73); Platelet Count 420 K/mm3 (150-400); RDW Coefficient Variation 18.7 % (11.7-14.2); RDW Standard Deviation 51.4 fL (35.1-46.3); Red Blood Cell Count 3.96 M/mm3 (3.80-5.20); White Blood Cell Count 10.77 K/mm3 (4.00-11.30)
[2021-06-15 15:13] LABS: Troponin I <0.015 ng/mL (0.000-0.040)
[2021-06-15] MEDS ORDERED: LEVFLO500 PO (15:13)
[2021-06-15 15:14] LABS: Alanine Aminotransfer (ALT/SGP 14 U/L (12-78); Albumin, Blood 2.8 g/dL (3.4-5.0); Albumin/Globulin Ratio 0.6 (0.8-1.8); Alk Phos 82 U/L (50-136); Anion Gap 11 mmol/L (6-16); Aspartate Aminotrans (AST/SGOT 12 U/L (12-37); Bilirubin, Total 0.3 mg/dL (0.1-1.0); Blood Urea Nitrogen 98 mg/dL (8-24); Bun/Creatinine Ratio 30.2 (12.0-20.0); CO2, Blood 27 mmol/L (21-32); Calcium, Blood 9.6 mg/dL (8.5-10.1); Chloride, Blood 93 mmol/L (98-108); Creatinine, Blood 3.25 mg/dL (0.40-1.00); Glomerular Filtration Rate 15 (60-); Glucose, Blood 71 mg/dL (70-99); Potassium, Blood 5.7 mmol/L (3.5-5.5); Sodium, Blood 131 mmol/L (136-145); Total Protein, Blood 7.8 g/dL (6.4-8.2)
[2021-06-15] MEDS ORDERED: FURO40 PO (15:23)
[2021-06-15] MEDS ORDERED: SODCHL1 PO (15:34)
[2021-06-15] MEDS ORDERED: ALBU2.5V5 INH (15:38)
--- NOTE | 2021-06-15 22:55 | NUR ---
ASSUMED CARE PT ARRIVES TO ICU 2 FOLLOWING CODE BLUE. PT WAS REPORTEDLY PULSELESS, CPR INITIATED AND 1 DOSE OF EPI GIVE. ROSC ACHIEVED. PT IS ON VENT AC 16, TV 325, PEEP 10, FIO2 90%. OG IS PLACED AND BOTH ETT AND OG ARE CONFIRMED BY XRAY PER DR LAW. PROPOFOL GTT FOR SEDATION, NEW IV ACCESS OBTAINED AND LEVOPHED ORDERED FOR BP SUPPORT. MAY TITRATE LEVOPHED FOR MAP >65 UP TO 10MCG IN PIV PER DR LAW. GERMAN PLACED AND THE USUAL ICU CARE INITIATED.
[2021-06-15 23:02] LABS: BASOPHILS ABSOLUTE AUTO 0.03 K/mm3 (0.00-0.23); BASOPHILS PERCENT AUTO 0 % (0-2); EOSINOPHILS ABSOLUTE AUTO 0.02 K/mm3 (0.00-0.68); EOSINOPHILS PERCENT AUTO 0 % (0-6); Hematocrit 31.3 % (33.0-51.0); Hemoglobin 9.4 g/dL (11.5-16.0); IMMATURE GRAN PERCENT AUTO 2 % (0-1); LYMPHOCYTES ABSOLUTE AUTO 1.76 K/mm3 (0.84-5.20); LYMPHOCYTES PERCENT AUTO 11 % (21-46); MONOCYTES ABSOLUTE AUTO 0.51 K/mm3 (0.16-1.47); MONOCYTES PERCENT AUTO 3 % (4-13); Mean Corpuscular Volume 80 fL (80-100); Mean Platelet Volume 9.9 fL (9.1-12.4); NEUTROPHILS ABSOLUTE AUTO 13.63 K/mm3 (1.96-9.15); NEUTROPHILS PERCENT AUTO 83 % (41-73); NRBC ABSOLUTE 0.02 K/mm3 (0.00-0.02); NRBC Auto 0.1 /100 WBC (0.0-0.2); Platelet Count 436 K/mm3 (150-400); RDW Coefficient Variation 19.3 % (11.7-14.2); Red Blood Cell Count 3.91 M/mm3 (3.80-5.20); White Blood Cell Count 16.35 K/mm3 (4.00-11.30)
[2021-06-15 23:18] LABS: CPK Creatine Kinase 135 U/L (26-193); Creatine Kinase MB 1.4 ng/mL (0.0-3.6); Magnesium, Blood 2.2 mg/dL (1.6-2.4); Troponin I <0.015 ng/mL (0.000-0.040)
--- NOTE | 2021-06-15 23:25 | NUR ---
7.5 ETT, 23 CM AT TEETH
[2021-06-15 23:32] LABS: Alanine Aminotransfer (ALT/SGP 66 U/L (12-78); Albumin, Blood 2.7 g/dL (3.4-5.0); Albumin/Globulin Ratio 0.6 (0.8-1.8); Alk Phos 87 U/L (50-136); Anion Gap 9 mmol/L (6-16); Aspartate Aminotrans (AST/SGOT 111 U/L (12-37); Bilirubin, Total 0.3 mg/dL (0.1-1.0); Blood Urea Nitrogen 100 mg/dL (8-24); Bun/Creatinine Ratio 30.1 (12.0-20.0); CO2, Blood 27 mmol/L (21-32); Calcium, Blood 9.3 mg/dL (8.5-10.1); Chloride, Blood 93 mmol/L (98-108); Creatinine, Blood 3.32 mg/dL (0.40-1.00); Globulin, Blood 4.9 g/dL (2.2-4.0); Glomerular Filtration Rate 15 (60-); Glucose, Blood 217 mg/dL (70-99); Phosphorus, Blood 8.3 mg/dL (2.5-4.9); Potassium, Blood 6.5 mmol/L (3.5-5.5); Sodium, Blood 129 mmol/L (136-145); Total Protein, Blood 7.6 g/dL (6.4-8.2)
[2021-06-15 23:50] LABS: International Normalized Ratio 1.14; Prothrombin Time Results 12.2 Sec (9.7-11.5)
--- NOTE | 2021-06-15 23:53 | NUR ---
06/15/211939 Patient was received from the ED via stretcher. Pt is pale with cool skin. Pt is on 4 L via NC. Pt has severe Ascities, abdomen round, has active bowel tones. Lungs with no air movement heard on Rt side. Clear but sl diminished on Left. Pt is SOB with activity. Pt has gauze and johny wrap to ro. lower extremities. Tele on with SR/ST. 2100 Pt with some air hunger, O2 to mouth because pt is a mouth breather. Medicated with 2 mg MS with sl relief. 2129, 2149 in pt room giving meds. Monitoring O2 sats. O2 sats 87-91%. O2 increased to 6 liters.
--- NOTE | 2021-06-16 00:01 | NUR ---
06/15/210 This nurse went into room to do Covid swab, pt had pulled O2 off. Pt was aginal breathing, color cyanotic, unresponsive. Code jason called, telecommunication lines repairer called at that time to say HR was dropping to 39. Pt placed on defib/monitor from crash cart. No heart rhythm seen. CPR started, Pt being bagged. Please see code record. Pt was transferred to ICU via bed at 2250.
[2021-06-16 01:05] LABS: PCO2 Arterial 45.8 mmHg (35-45); PO2 Arterial 211 mmHg (80-100)
[2021-06-16 02:24] LABS: Source, Urine Catheter
[2021-06-16 02:27] LABS: Appearance, Urine Cloudy (Clear); Bilirubin, Urine Neg (Neg); Blood, Urine 5+ (Neg); Color, Urine Amber (P-Yellow); Glucose Qualitative, Urine Neg (Neg); Ketones, Urine 1+ (Neg); Leukocyte Esterase, Urine 2+ (Neg); Nitrite, Urine Neg (Neg); Protein, Urine 4+ (Neg); Urobilinogen, Urine NORM (Normal)
[2021-06-16 02:34] LABS: Bacteria Many /hpf; Red Blood Cells, Urine TNTC /hpf (0-2); Squamous Epithelial Cells Few /hpf (Few)
[2021-06-16 02:35] LABS: SARS-Cov-2 (COVID-19) PCR, MMC NEGATIVE (NEGATIVE)
[2021-06-16 03:40] LABS: BASOPHILS ABSOLUTE AUTO 0.02 K/mm3 (0.00-0.23); BASOPHILS PERCENT AUTO 0 % (0-2); EOSINOPHILS PERCENT AUTO 0 % (0-6); Hemoglobin 8.8 g/dL (11.5-16.0); IMMATURE GRAN PERCENT AUTO 2 % (0-1); LYMPHOCYTES ABSOLUTE AUTO 0.93 K/mm3 (0.84-5.20); LYMPHOCYTES PERCENT AUTO 6 % (21-46); MONOCYTES ABSOLUTE AUTO 0.86 K/mm3 (0.16-1.47); MONOCYTES PERCENT AUTO 6 % (4-13); Mean Corpuscular HGB 23.3 pg (26.0-34.0); Mean Corpuscular HGB Conc 29.3 g/dL (31.5-36.5); Mean Corpuscular Volume 79 fL (80-100); Mean Platelet Volume 8.7 fL (9.1-12.4); NEUTROPHILS ABSOLUTE AUTO 12.55 K/mm3 (1.96-9.15); NEUTROPHILS PERCENT AUTO 86 % (41-73); Platelet Count 405 K/mm3 (150-400); RDW Coefficient Variation 19.1 % (11.7-14.2); RDW Standard Deviation 54.3 fL (35.1-46.3); Red Blood Cell Count 3.78 M/mm3 (3.80-5.20); White Blood Cell Count 14.66 K/mm3 (4.00-11.30)
[2021-06-16 03:55] LABS: International Normalized Ratio 1.16; Prothrombin Time Results 12.4 Sec (9.7-11.5)
[2021-06-16 04:00] LABS: Albumin, Blood 2.5 g/dL (3.4-5.0); Albumin/Globulin Ratio 0.6 (0.8-1.8); Bilirubin, Total 0.4 mg/dL (0.1-1.0); Bun/Creatinine Ratio 30.4 (12.0-20.0); Creatinine, Blood 3.32 mg/dL (0.40-1.00); Globulin, Blood 4.4 g/dL (2.2-4.0); Magnesium, Blood 2.2 mg/dL (1.6-2.4); Potassium, Blood 5.8 mmol/L (3.5-5.5); Total Protein, Blood 6.9 g/dL (6.4-8.2)
[2021-06-16 04:15] LABS: PCO2 Arterial 41.5 mmHg (35-45); pH Blood Arterial 7.37 (7.35-7.45)
[2021-06-16 04:16] LABS: PO2 Arterial 149 mmHg (80-100)
--- NOTE | 2021-06-16 04:46 | NUR ---
DR VARGAS UPDATED WITH PT STATUS. LEVOPHED IS MAXED OUT AT 10MCG IN A PIV TO MAINTAIN MAP PF 65. LABS REVIEWED. NEW ORDER FOR VASOPRESSIN GTT RECEIVED. NO WORD FROM FAMILY YET.
--- NOTE | 2021-06-16 06:33 | NUR ---
SHIFT SUMMARY PT IS STABLE ON CURRENT VENT SETTINGS AND MEDICATIONS. VENT AC 16, TV 325, PEEP 5, FIO2 30%. PROPOFOL AT 30MCG/KG/MIN, LEVOPHED AT 7MCG/MIN, AND VASOPRESSION AT 0.04 UNITS/MIN. PT GRIMACES WITH ORAL CARE OR REPOSITIONING. NO LS HEARD ON R SIDE, DIM ON L. PT IS EDEMATOUS THROUGHOUT AND WEEPING FROM BLE. DAMP DRESSINGS ARE REMOVED FROM BLE, SKIN INTACT, BUT WEEPING. PT HAS ONLY 100ML OF UO SINCE GERMAN PLACEMENT AT 0100. COCCYX SKIN BREAKDOWN NOTED, SEE ADMIT PICS. WILL CONTINUE TO MONITOR AND REPORT TO ONCOMING SHIFT.
--- NOTE | 2021-06-16 08:30 | NUR ---
INITIAL ASSESSMENT PATIENT INTUBATED AND ON SEDATION. PATIENT IS ABLE TO RESPOND TO VERBAL STIMULI AND FOLLOW SIMPLE COMMANDS SUCH SQUEEZING WITH BILAT HANDS, WIGGLING BILAT TOES AND NODDING/ SHAKING HEAD TO ANSWER YES AND NO QUESTIONS. PATIENT GIVEN PRN FENTANYL THIS AM AFTER INDICATING SHE WAS IN PAIN. PATIENT APPEARS MORE COMFORTABLE SINCE. PATIENT AFEBRILE. PATIENT ON VENT AC/ VC 16, TV 350, PEEP 5 AND 30% FIO2. SMALL AMOUNT OF THICK, PINK SPUTUM BEING SUCTIONED FROM ETT. LUNGS CLEAR IN UPPER LOBES, DIMINISHED IN RLL, AND COARSE IN LLL. HR 90S TO LOW 100S. SBP 70S TO LOW 100S. ABD DISTENDED; ASCITED NOTED. GERMAN IN PLACE DRAINING DARK YELLOW COLORED URINE WITH SEDIMENT NOTED. ULCER NOTED TO COCCYX; MEPILEX IN PLACE. PROPOFOL INFUSING AT 40 MCG/ KG/ MINUTE, NS TKO, LEVOPHED AT 7 MCG/ MINUTE, VASOPRESSIN AT 0.04 UNITS/ MINUTE. DR. CALLES HAS STATED "NO ESCALATION OF CARE AT THIS TIME" AFTER SEEING PATIENT JUST NOW. WILL CONTINUE TO MONITOR.
--- NOTE | 2021-06-16 09:05 | NUR ---
Ethics consult order received and processed. Case details, medical history and social situation reviewed with ICU and Palliative Care. The principal i.e., Hannah is obtunded, non-communicative and on mechanical airway support. She has an underlying metastatic cancer and a very low probability of benefiting from ongoing therapy or aggressive treatment. Subsequent to her intubation, it was discovered that the principal filed an advance care planning instrument which stipulated a clear preference to forgo chest compressions, advanced airway interventions, and yield only to limited forms of treatment. A good ashley effort is underway to locate and inform family, but has thus far been unsuccessful. Given the status of her POLST, her bleak clinical condition, and our crisis standards of operation, it would be ethically and legally permissible to discontinue life support and allow natural or foster stabilization non-aggressively. These actions would be in alignment with the dignity of Hannahs previously expressed wishes, and consistent with our capacity limitations, despite our failed attempts to lovingly contact family and or friends. Thank you for this consult. Jakob Abdi ThD
--- NOTE | 2021-06-16 10:32 | NUR ---
PATIENT EXTUBATED AT 0949 TO COMFORT CARE. PALLIATIVE CARE AND ETHICS HAS BEEN IN WITH PATIENT AND IN COMMUNICATION WITH PATIENT BROTHER. PATIENT PASSED AT 1032. PALLIATIVE CARE INFORMING BROTHER.
--- NOTE | 2021-06-16 11:15 | NUR ---
PATIENT TRANSFERRED TO SURGICAL FLOOR, 203 TO AWAIT TRANSFER TO MORTUARY. GROVER FLEMING GIVEN REPORT.
--- NOTE | 2021-06-16 11:47 | NUR ---
Pt was placed on comfort care this morning. She peacefully, with Fill Manager and this Palliative Care at bedside after ventilator was withdrawn, as patient's wishes. As noted in conference notes, spoke to pt's brother Eben Kennedy at [phone] prior to witdrawal of ventilator, and again after pt passed. He has chosen [facility] for the patient. I attempted several telephone numbers prior to reaching both Eben, and pt's son Sebas. Eben tells me at this time, Sebas uses pt's phone normally, but she happens to have her phone in the room with her. I was unable to reach Sebas at the phone numbers on file for him. Pt's son also arrived at the hospital this am, after patient had . I asked him if we could find a place to sit and talk, and he asked, "She , didn't she?" I told him she had, and that I had been there with her. He reacted with tensing up his shoulders, and told me to talk to pt's brother Eben for "all decisions" about morturary. He then turned and walked away, pushing over a hospital sign on the sidewalk as he exited the building.
== END 2021-06-16 13:06 | DRG 208 ==
LOC: ER 14:04 → ICUE 17:40 → MEDS 17:40 → ICUE 22:50 → SURS 06-16 11:42
PROVIDERS: Internal Medicine; Physician Assistant; ADMIT Family Medicine
PROC: 5A1935Z Respiratory Ventilation, Less than 24 Consecutive Hours (ICD-10-PCS; principal; 2021-06-15)
PROC: 0BH17EZ Insertion of Endotracheal Airway into Trachea, Via Natural or Artificial Opening (ICD-10-PCS; 2021-06-15)
PROC: 5A12012 Performance of Cardiac Output, Single, Manual (ICD-10-PCS; 2021-06-15)
PROC: 3E033XZ Introduction of Vasopressor into Peripheral Vein, Percutaneous Approach (ICD-10-PCS; 2021-06-15)
DX: J96.01 Acute respiratory failure with hypoxia (principal); I26.99 Other pulmonary embolism without acute cor pulmonale; C78.00 Secondary malignant neoplasm of unspecified lung; C64.2 Malignant neoplasm of left kidney, except renal pelvis; J91.0 Malignant pleural effusion; Z66 Do not resuscitate; N17.9 Acute kidney failure, unspecified; N18.4 Chronic kidney disease, stage 4 (severe); E87.1 Hypo-osmolality and hyponatremia; C78.6 Secondary malignant neoplasm of retroperitoneum and peritoneum; E87.2 Acidosis; R18.0 Malignant ascites; Z20.822 Contact with and (suspected) exposure to COVID-19; E87.5 Hyperkalemia; I95.9 Hypotension, unspecified; D63.1 Anemia in chronic kidney disease; E11.22 Type 2 diabetes mellitus with diabetic chronic kidney disease; Z79.899 Other long term (current) drug therapy; Z79.4 Long term (current) use of insulin; Z79.01 Long term (current) use of anticoagulants; Z90.710 Acquired absence of both cervix and uterus
CPT/HCPCS: 31500; 36415; 36600; 51702; 71045; 74018; 80053; 81001; 82550; 82553; 82803; 82947; 83605; 83735; 83880; 84100; 84145; 84484; 85025; 85610; 85730; 87040; 87086; 93005; 93010; 94002; 94003; 94640; 96361; 96374; 99285-25; A9270; C9113; J0330; J0456; J0696; J0881; J1630; J1815; J2060; J2270; J2704; J3010; J7030; J7050; J7060; U0004